=== PATIENT | male | born 1955 | race Caucasian/White ===

== ENCOUNTER 2021-02-15 13:03 | Emergency (ER) | payer MEDICARE, SELFPAY ==
--- NOTE | ~2021-02-15 | XR_ITS ---
EXAMINATION: XR chest 2V 02/15/2021 14:10 INDICATION: Dizziness and headache PROCEDURE: 2 view chest COMPARISON: 09/21/2007 FINDINGS: The lungs are clear. The cardiomediastinal silhouette is within normal limits. There are no pleural effusions. There is no pneumothorax suspected. IMPRESSION: 1: NO ACUTE CARDIOPULMONARY DISEASE. Reviewed, dictated and finalized at location B.
--- NOTE | ~2021-02-15 | CT_ITS ---
EXAMINATION: CT brain wo con DATE: 02/15/2021 14:17 INDICATION: Dizziness with confusion TECHNIQUE: Computed tomography (CT) of the head was performed without intravenous contrast. The dose- length product was 681.00 mGy-cm. COMPARISON: CT dated 05/07/2010 FINDINGS: No acute intracranial hemorrhage, infarction, mass or mass effect. Mild generalized atrophy . There are scattered mild periventricular and subcortical white matter changes, most likely related to small vessel ischemic disease (microangiopathy). No ventriculomegaly or midline shift. There is in tracranial atherosclerosis. Basilar cisterns are patent. No depressed skull fractures. Paranasal sinu ses and mastoids are pneumatized. IMPRESSION: 1. No acute intracranial abnormality. Reviewed, dictated and finalized at location B.
[2021-02-15 13:17] VITALS: BP 179/109; PULSE 91; RESP 19; TEMP 36.8; O2SAT 98
[2021-02-15 13:39] VITALS: BP 186/104; PULSE 88; RESP 20; O2SAT 97
[2021-02-15 13:40] VITALS: BP 186/104; PULSE 92; RESP 25; O2SAT 97
--- NOTE | 2021-02-15 14:00 | ECG_ITS ---
Measurements Intervals [place] Rate: 74 P: 50 RI: 136 QRS: 39 QRSD: 98 T: 106 QT: 352 QTc: 392 Interpretive Statements SINUS RHYTHM NONSPECIFIC T-WAVE ABNORMALITY- ANTEROLAT/HIGH LAT LEADS BASELINE ARTIFACT- V6 BORDERLINE ECG Electronically Signed On 02-15-2021 14:55:18 CDT by Jose Lilly D.O.
[2021-02-15 14:02] VITALS: BP 172/100; PULSE 84; RESP 18; O2SAT 97
[2021-02-15 14:10] LABS: Basophils Absolute Auto 0.1 K/mm3 (0.0-0.1); Basophils Percent Auto 1.3 % (0.2-1.2); Eosinophils Absolute Auto 0.5 K/mm3 (0-0.3); Hematocrit 52.9 % (42.0-52.0); Hemoglobin 17.4 g/dL (14.0-18.0); Immature Granulocyte Absolute 0.03 K/mm3 (0.00-0.031); Immature Granulocyte Percent A 0.4 % (0-0.5); Lymphocytes Absolute Auto 2.38 K/mm3 (0.9-3.2); Lymphocytes Percent Auto 30.5 % (18.3-44.2); Mean Corpuscular HGB Conc 32.9 g/dl (32-36); Mean Corpuscular Hemoglobin 30.6 pg (26-34); Mean Corpuscular Volume 93.1 fl (80-100); Mean Platelet Volume 9.9 fl (7.4-10.4); Monocytes Absolute Auto 0.6 K/mm3 (0.1-0.6); Monocytes Percent Auto 7.6 % (2.6-8.5); Neutrophils Absolute Auto 4.2 K/mm3 (1.3-6.7); Neutrophils Percent Auto 54.2 % (45.5-73.1); Platelet Count Result 169 k/mm3 (150-375); Red Blood Count 5.68 M/mm3 (4.6-6.20); Red Cell Distribution Width 14.6 % (11.5-14.5); White Blood Count 7.8 K/mm3 (4.5-10.0)
[2021-02-15 14:20] LABS: Alanine Aminotransferase 43 U/L (4-50); Albumin Level 4.5 g/dL (3.5-5.1); Alkaline Phosphatase 45 U/L (38-126); Anion Gap 11 mmol/L (8-16); Aspartate Amino Transferase 41 U/L (17-59); Bilirubin,Total 0.6 mg/dL (0.2-1.3); Blood Urea Nitrogen 12 mg/dL (9-20); Calcium 9.7 mg/dL (8.4-10.2); Carbon Dioxide 26 mmol/L (22-30); Chloride 101 mmol/L (98-107); Estimated CRCL calculation 63 ml/min; Estimated Glomerular Filt Rate 51; Glucose 105 mg/dL (75-110); Potassium 3.5 mmol/L (3.4-5.0); Sodium 138 mmol/L (137-145)
[2021-02-15 14:44] LABS: Add Urine Microscopic? NO; Appearance Urine Clear (Clear); Bilirubin Urine Negative (Negative); Blood Urine Negative (Negative); Color Urine Straw (Yellow); Glucose Urine UA Negative (Negative); Ketones Urine Negative (Negative); Leukocyte Esterase Ur Negative LEU/UL (Negative); Nitrate Urine Negative (Negative); Protein Urine Negative (Negative); Specific Grav Ur 1.006 (1.001-1.035); Urobilinogen Urine Negative mg/dL (<2.0)
--- NOTE | 2021-02-15 15:13 | ED.GENADULT ---
HPI - General Adult General Chief complaint: Neuro Symptoms/Deficit Stated complaint: dizzy, Time Seen by Provider: 02/15/21 13:31 Source: patient and RN notes reviewed Mode of arrival: ambulatory Limitations: no limitations History of Present Illness HPI narrative: Patient 65 years old white male presented to the ED with intermittent dizziness for the last 4 weeks. Patient called his family physician 10 days ago who started him on decongestant. Patient reports that dizziness like everything spins when he rolls over in bed, when he gets up from sitting position, when he bends over. Associated sometimes with nausea and sometimes vomiting. Currently patient laying down in bed feeling a little dizzy like wobbly. Patient drove himself to the emergency room. History of hypertension on quinapril 40 mg once a day, hydrochlorothiazide 25 mg once a day. Patient report missing his medication sometimes. But been faithful with his medication over the last 7 days. Patient denies any numbness, tingling or focal neuro deficits. Patient does not smoke or drink or uses drugs. Patient denies any fever, chills, nausea, vomiting, chest pain, or shortness of breath. Complaining of slight headache. And foggy-like feeling Blood pressure on arrival to the emergency room 179/109, currently 172/100. Patient had his blood pressure medication this morning. Related Data Home Medications Medication Instructions Recorded Confirmed aspirin 81 mg tablet,delayed 81 mg PO DAILY 01/04/20 release hydrochlorothiazide 25 mg tablet 25 mg PO DAILY 01/04/20 mecobalamin (vitamin B12) 10,000 See Rx Instructions .ROUTE .COMPLEX 01/04/20 mcg solution for injection quinapril 40 mg tablet 40 mg PO DAILY 01/04/20 testosterone cypionate 600 mg IM ONCE 02/15/21 02/15/21 Allergies Allergy/AdvReac Type Severity Reaction Status Date / Time Iodine and Iodide Containing Allergy Unknown RASH Verified 02/15/21 13:46 Produc ALL FISH Allergy Unknown Anaphylaxis Uncoded 02/15/21 13:46 Review of Systems Review of Systems: Narrative: CONSTITUTIONAL: Denies fever, chills, or sweats. EYES: Denies visual changes, redness, or discharge. ENT: Denies rhinorrhea, congestion, sore throat, or otalgia. CARDIOVASCULAR: Denies chest pain, palpitations, or edema. RESPIRATORY: Denies cough or dyspnea. GASTROINTESTINAL: Denies abdominal pain, nausea, vomiting, or diarrhea. GENITOURINARY: Denies dysuria or hematuria. SKIN: Denies rash or itching. MUSCULOSKELETAL: Denies back pain, joint pain, or myalgia. NEUROLOGIC: Denies headache, numbness, or weakness. PSYCHIATRIC: Denies anxiety or depression. [facility] Past Medical History Medical History Elevated CK-MB level Inflammatory arthritis Social History Social History Gender identity (if verbalized by the patient): Male Exam Narrative: Exam Narrative: General appearance: Well-developed, well-nourished Skin: Normal color Head: Normocephalic, nontraumatic Eyes: Clear conjunctiva ENT: Oropharynx normal, ears normal, nose normal Neck: Supple, nontender Chest and respiratory: Airway patent, no respiratory distress, no accessory muscle use Heart: Regular rate/rhythm Abdomen: Soft, nontender, no organomegaly, quiet bowel sounds Vascular: Normal peripheral pulses, normal capillary refill. Musculoskeletal: Normal range of motion, nontender back Neurologic: Alert and oriented ?3, [employer]ER is normal as tested, no gross motor deficit Course Course Emergency Course: Stable Vital Signs Vital signs: Vital Signs Temperature 36.8 C 02/15/21 13:17 Pulse
[2021-02-15] MEDS: cloNIDine HCL 0.1 MG TABLET PO (15:24)
[2021-02-15 15:31] LABS: Barbiturate Screen Urine Negative (Negative); Benzodiazepines Screen Urine Negative (Negative)
[2021-02-15 16:06] LABS: Troponin I < 0.012 ng/mL (0.000-0.034)
[2021-02-15 16:06] LABS: Amphetamine Screen Urine Negative (Negative); Cannabinoid Screen Urine Negative (Negative); Cocaine Screen Urine Negative (Negative); Methadone Screen Urine Negative (Negative); Opiate Screen Urine Negative (Negative); Phencyclidine Screen Urine Negative (Negative)
[2021-02-15 16:25] VITALS: BP 155/100; PULSE 70; RESP 21; O2SAT 98
[2021-02-15 16:32] LABS: Partial Thromboplastin Time 27.1 SECONDS (22.3-36.8)
== END 2021-02-15 16:42 | disposition home or self-care (01) ==
PROVIDERS: Emergency Provider Emergency Medicine; PCP Internal Medicine
DX: R42 Dizziness and giddiness (principal); I10 Essential (primary) hypertension; T50.905A Adverse effect of unspecified drugs, medicaments and biological substances, initial encounter; Z79.82 Long term (current) use of aspirin
CPT/HCPCS: 36415; 70450; 71046; 80053; 80307; 81003; 84484; 85025; 85610; 85730; 93005; 99284; A9270

== ENCOUNTER 2021-05-06 01:08 | Day surgery (SDC) | payer MEDICARE, SELFPAY ==
[2021-04-24 14:27] VITALS: BMI 34.7
--- NOTE | 2021-05-06 09:55 | WPDANESEPPF ---
Anes - Initial Pre Proc Eval Procedure: Operation Date: 05/06/21 11:00 Proposed Procedures p Screening Colonoscopy - Barrie Delacruz MD Date/Time: 05/06/21 09:55 Surgeon: Barrie Delacruz MD Pre Op Diagnosis: family hx colon ca z85.038 neoplasm z12.11 Patient Data Age: 66 Gender: M Height: 1.83 m Weight: 116.2 kg Allergies Allergy/AdvReac Type Severity Reaction Status Date / Time Iodine and Iodide Containing Allergy Unknown RASH Verified 05/06/21 10:07 Produc ALL FISH Allergy Unknown Anaphylaxis Uncoded 05/06/21 10:07 Home Medications Medication Instructions Recorded Confirmed Type aspirin 81 mg tablet,delayed 81 mg PO DAILY 01/04/20 04/24/21 History release hydrochlorothiazide 25 mg tablet 25 mg PO DAILY 01/04/20 04/24/21 History mecobalamin (vitamin B12) 10,000 See Rx Instructions .ROUTE .COMPLEX 01/04/20 04/24/21 History mcg solution for injection quinapril 40 mg tablet 40 mg PO DAILY 01/04/20 04/24/21 History clonidine HCl 0.1 mg PO ONCE PRN #30 tablet 02/15/21 04/24/21 Rx meclizine 25 mg PO TID PRN #20 tablet 02/15/21 Rx ondansetron HCl [Zofran] 4 mg PO Q6H PRN #10 tablet 02/15/21 Rx testosterone cypionate 600 mg IM ONCE 02/15/21 04/24/21 History Patient hx anesthesia problems: none Family hx anesthesia problems: none PMFSH Past Medical History Medical History Asthma Back pain BPH (benign prostatic hyperplasia) Elevated CK-MB level HTN (hypertension) Hyperlipidemia Inflammatory arthritis Obesity Social History Social History Smoking packs per day: 1.5 Smoking cigarettes per day: 30.0 Smoking status: Former smoker Tobacco type: cigarettes Alcohol intake: current Alcohol use details: RARE Substance use: never Substance use type: does not use Living arrangements: with family Gender identity (if verbalized by the patient): Male Spiritual care concerns: No Anes - Eval Final PreProcedure Day of Procedure 05/06/21 09:55 Patient weight: obese Heart: regular rate and rhythm Lungs: clear to auscultation and normal air movement Airway: Mallampati scale class II Neurological: alert and oriented Last oral intake: >/= 8 hours ASA classification: III Emergent: no Anesthetic plan: proceed Anesthesia type and monitoring: general GIVS Informed Consent: The patient's anesthetic plan and its attendant risks and benefits were discussed with the patient/family/POA. Questions were solicited and answers provided to the satisfaction of the patient/family/POA.
--- NOTE | 2021-05-06 09:57 | PM.HPGS ---
History of Present Illness History of Present Illness Consent: Risks, benefits, and alternatives have been discussed and questions answered. Patient agrees to proceed with procedure. Chief complaint: family hx colon ca z85.038 neoplasm z12.11 Narrative: Andrew Ro is a 66 year old male with a history of polyps. He also has a family history of colon cancer Review of Systems Review of Systems: All systems reviewed & are unremarkable except as noted in HPI and below PMFSH Past Medical History Medical History Asthma Back pain BPH (benign prostatic hyperplasia) Elevated CK-MB level HTN (hypertension) Hyperlipidemia Inflammatory arthritis Obesity Social History Social History Smoking packs per day: 1.5 Smoking cigarettes per day: 30.0 Smoking status: Former smoker Tobacco type: cigarettes Alcohol intake: current Alcohol use details: RARE Substance use: never Substance use type: does not use Living arrangements: with family Gender identity (if verbalized by the patient): Male Spiritual care concerns: No Meds Home Medications and Allergies Home Medications Medication Instructions Recorded Confirmed Type aspirin 81 mg tablet,delayed 81 mg PO DAILY 01/04/20 04/24/21 History release hydrochlorothiazide 25 mg tablet 25 mg PO DAILY 01/04/20 04/24/21 History mecobalamin (vitamin B12) 10,000 See Rx Instructions .ROUTE .COMPLEX 01/04/20 04/24/21 History mcg solution for injection quinapril 40 mg tablet 40 mg PO DAILY 01/04/20 04/24/21 History clonidine HCl 0.1 mg PO ONCE PRN #30 tablet 02/15/21 04/24/21 Rx meclizine 25 mg PO TID PRN #20 tablet 02/15/21 Rx ondansetron HCl [Zofran] 4 mg PO Q6H PRN #10 tablet 02/15/21 Rx testosterone cypionate 600 mg IM ONCE 02/15/21 04/24/21 History Allergies Allergy/AdvReac Type Severity Reaction Status Date / Time Iodine and Iodide Containing Allergy Unknown RASH Verified 04/24/21 14:23 Produc ALL FISH Allergy Unknown Anaphylaxis Uncoded 04/24/21 14:23 Exam Resp: Auscultation: clear to auscultation bilaterally Cardio: Rate: regular rate Rhythm: regular rhythm GI: GI Palp: Yes Soft to palpation and No Tenderness to palpation present (GI) Assessment and Plan Assessment and plan (1) Colon cancer screening: Code(s): Z12.11 - Encounter for screening for malignant neoplasm of colon Status: Acute Assessment and Plan: Colonoscopy with possible biopsy or polypectomy or cautery or injection of substances.
[2021-05-06 10:09] VITALS: BP 158/97; PULSE 85; RESP 18; TEMP 36.7; O2SAT 96; BMI 34.4
[2021-05-06] MEDS: LACTATED RINGERS 1,000 ML 150 ML IV CONT (10:15)
[2021-05-06] MEDS: SIMETHICONE ORAL SUSPENSION 20 MG/0.3 ML 30 ML BOTTLE 0.6 ML IRRIGATION (11:02)
[2021-05-06 11:11] VITALS: BP 97/47; PULSE 79; RESP 15; O2SAT 96
[2021-05-06 11:21] VITALS: BP 100/53; PULSE 77; RESP 16; O2SAT 95
[2021-05-06 11:31] VITALS: BP 132/55; PULSE 74; RESP 20; O2SAT 98
== END 2021-05-06 11:51 | disposition home or self-care (01) ==
PROVIDERS: PCP Internal Medicine; Visit Provider Internal Medicine Gastroenterology
PROC: 0DJD8ZZ Inspection of Lower Intestinal Tract, Via Natural or Artificial Opening Endoscopic (ICD-10-PCS; CPT 45378; principal; 2021-05-06 11:00)
DX: Z12.11 Encounter for screening for malignant neoplasm of colon (principal); K57.30 Diverticulosis of large intestine without perforation or abscess without bleeding; Z80.0 Family history of malignant neoplasm of digestive organs; J45.909 Unspecified asthma, uncomplicated; N40.0 Benign prostatic hyperplasia without lower urinary tract symptoms; I10 Essential (primary) hypertension; E78.5 Hyperlipidemia, unspecified; Z87.891 Personal history of nicotine dependence; Z79.82 Long term (current) use of aspirin; E66.9 Obesity, unspecified; Z68.34 Body mass index [BMI] 34.0-34.9, adult
CPT/HCPCS: G0105; J2704; J7120

== ENCOUNTER 2022-01-30 10:37 | Outpatient (CLI) | payer MEDICARE, SELFPAY ==
--- NOTE | ~2022-01-30 | US_ITS ---
US renal BI 01/30/2022 11:49 Procedure: Realtime transabdominal ultrasound of the kidneys and bladder. Indication: Abnormal creatinine. Comparison: No prior studies for comparison. Findings: Renal echotexture is normal on the right. There are multiple left renal cysts, largest leo uring 9 cm. No hydronephrosis or solid masses. The right kidney measures 11.6 cm and left kidney leo ures 17.6 cm. Bladder within normal limits. Impression: 1: Multiple left renal cysts measuring up to 9 cm. Reviewed, dictated and finalized at location B. Impression: 1: Multiple left renal cysts measuring up to 9 cm.
--- NOTE | ~2022-01-30 | US_ITS ---
EXAMINATION: US carotid duplex BI DATE: 01/30/2022 11:49 INDICATION: TIA. TECHNIQUE: Grayscale, color Doppler, and pulsed Doppler images of the cervical carotid arteries were obtained. The degree of vessel stenosis is placed in one of the following categories: normal, <50%, 5 0-69%, >=70% but less than near-occlusion, near-occlusion, or total occlusion. Note that percent sten osis relative to normal distal artery lumen diameter is indirectly measured from velocity measurement s as described by Nii, et al. Radiology 2003; 229:340-346. Notes: Normal: Peak systolic velocity <125 centimeters/sec and no plaque <50%. Peak systolic velocity <125 ( EDV <40; ICA/CCA PSV ratio <2.0; used these factors only a tandem lesions or low cardiac output or co ntralateral disease) 50-69 %: PSV 125-230 (EDV 40-100; ratio 2-4) >= 70% but less than near occlusion: PSV greater than 230 (EDV > 100; ratio> 4.0) Near Occlusion: PSV that is variable; markedly narrowed lumen Occlusion: Absent flow on color/spectral Doppler and no lumen on dickerson scale. COMPARISON: Ultrasound dated 08/09/2013. FINDINGS: RIGHT: The right common carotid artery (CCA) peak systolic velocity (PSV) is 87 cm/s. The right internal car otid artery (ICA) PSV is 100 cm/s. The right ICA end-diastolic velocity (EDV) is 26 cm/s. The right I CA/CCA PSV ratio is 1.1. The external carotid artery (ECA) PSV is 159 cm/s. There is antegrade flow i n the right vertebral artery. LEFT: The left CCA PSV is 83 cm/s. The left ICA PSV is 104 cm/s. The left ICA EDV is 31 cm/s. The left ICA/ CCA PSV ratio is 1.3. The ECA PSV is 129 cm/s. There is antegrade flow in the left vertebral artery. IMPRESSION: 1. Less than 50% stenosis in the right internal carotid artery by sonographic criteria. 2. Less than 50% stenosis in the left internal carotid artery by sonographic criteria. Reviewed, dictated and finalized at location B. IMPRESSION: 1. Less than 50% stenosis in the right internal carotid artery by sonographic c riteria. 2. Less than 50% stenosis in the left internal carotid artery by sonographic cr benedictia.
== END 2022-01-30 10:38 | disposition home or self-care (01) ==
PROVIDERS: PCP Internal Medicine; Visit Provider Internal Medicine
DX: R79.89 Other specified abnormal findings of blood chemistry (principal); N28.1 Cyst of kidney, acquired; I65.23 Occlusion and stenosis of bilateral carotid arteries
CPT/HCPCS: 76775; 93880

== ENCOUNTER 2023-07-14 07:45 | Outpatient (CLI) | payer MEDICARE, SELFPAY ==
--- NOTE | 2023-07-14 08:50 | ECG_ITS ---
Measurements Intervals [place] Rate: 81 P: 46 [place]: 129 QRS: 1 QRSD: 102 T: 83 QT: 371 QTc: 433 Interpretive Statements SINUS RHYTHM CONSIDER INFERIOR INFARCT, AGE INDETERMINATE BORDERLINE ST-T WAVE ABNORMALITY- HIGH LATERAL LEADS ABNORMAL ECG COMPARED TO ECG 02/15/2021 14:39:34 NO SIGNIFICANT CHANGES Electronically Signed On 07-14-2023 9:07:15 IMPLEMENTATION ADVISOR by Jose Lilly D.O.
[2023-07-14 09:22] LABS: Urine Cotinine NEGATIVE
[2023-07-14 09:23] LABS: Anion Gap 11 mmol/L (8-16); Blood Urea Nitrogen 22 mg/dL (9-20); Calcium 10.1 mg/dL (8.4-10.2); Carbon Dioxide 29 mmol/L (22-30); Chloride 100 mmol/L (98-107); Estimated Glomerular Filt Rate 43; Glucose 120 mg/dL (65-110); Potassium 3.9 mmol/L (3.4-5.0); Sodium 140 mmol/L (137-145)
[2023-07-14 09:24] LABS: Hemoglobin A1C 5.4 % (<5.7)
[2023-07-14 09:25] LABS: Prothrombin Time 13.1 Seconds (11.1-14.7)
[2023-07-14 09:26] LABS: Partial Thromboplastin Time 31.3 SECONDS (22.3-36.8)
== END 2023-07-14 07:46 | disposition home or self-care (01) ==
LOC: ANHSURGERY 07:56
PROVIDERS: Anesthesiology; PCP Internal Medicine; Visit Provider Orthopaedic Surgery
DX: M17.12 Unilateral primary osteoarthritis, left knee (principal); N18.32 Chronic kidney disease, stage 3b; Z01.818 Encounter for other preprocedural examination; R94.31 Abnormal electrocardiogram [ECG] [EKG]
CPT/HCPCS: 36415; 80048; 80307; 83036; 85610; 85730; 87081; 93005

== ENCOUNTER 2023-08-03 02:45 | Day surgery (SDC) | payer MEDICARE, SELFPAY ==
--- NOTE | 2023-07-14 07:52 | PC.NURSE ---
PRE-- Report to the Outpatient Waiting Room, entrance under the green pavilion located off [facility], at time _0600_ on date _08/03/23_. Planned Procedure Time: _0730_. PACK A SMALL OVERNIGHT BAG AND LEAVE IN THE CAR ALONG WITH YOUR WALKER Time changes happen often and if your time is changed the preop area will call you the afternoon before. - You and your visitor will be asked to self-screen and do not enter if you have any COVID symptoms. - A mask is optional within the hospital at this time. -VISITING HOURS 8AM-8PM Patients may have clear liquids (water, carbonated beverages, clear teas, apple juice) until 3 hours prior to surgery (0430 AM) with a maximum of 20 ounces. - No food from midnight until time of surgery Take the following medications with a SIP of water the morning of surgery: _NONE_ DO NOT STOP ANY OF YOUR OTHER PRESCRIPTION MEDICATIONS PRIOR TO SURGERY ?EXCEPT THE FOLLOWING Medications to discontinue per DR. TAYLOR - _ASPIRIN 7 DAYS PRIOR TO SURGERY, Date to take last dose 07/26/23_ Please no make-up, nail kazakh, hairspray, perfume, deodorant, or body powder the day of surgery. No jewelry (including any body piercings) or valuables the day of surgery, leave them at home. Please take a shower or bath the night before, or the morning of, surgery with an antibacterial soap. Wear comfortable, loose fitting clothing. - Jewelry must be removed prior to entering the operating room. Rings and piercings that are not removed may be cut off. - The hospital will not accept responsibility for valuables. - Please leave all valuables, including medications, at home the day of surgery. If you are going home after surgery, a licensed route sales delivery drivers supervisor must drive you home. - NO public transportation without another adult if you receive anesthesia. - We recommend that an adult stay with you for 24 hours following discharge. - We also recommend that you do not drive, make important decision, drink alcoholic beverages, or take any drugs that were not prescribed by your health care provider for at least 24 hours after your discharge time. Follow any additional instructions given to you from your surgeon. If you or anyone in your household have experienced Covid symptoms in the past week, please notify your surgeon or the nurse liaison at the phone number below for possible testing. Instructions given to _PATIENT_and asked if any additional questions and then verbalized understanding. Patient advised to call surgeon office or pre surgery nurse liaison [phone] if any additional questions.
--- NOTE | 2023-07-14 07:55 | PC.NURSE ---
PRE-OP INSTRUCTIONS, PLEASE READ CAREFULLY Report to the Outpatient Waiting Room, entrance under the green pavilion located off [facility], at time _0600_ on date _08/03/23_. Planned Procedure Time: _0730_. PACK A SMALL OVERNIGHT BAG AND LEAVE IN THE CAR ALONG WITH YOUR WALKER Time changes happen often and if your time is changed the preop area will call you the afternoon before. - You and your visitor will be asked to self-screen and do not enter if you have any COVID symptoms. - A mask is optional within the hospital at this time. -VISING HOURS 8AM-8PM Patients may have clear liquids (water, carbonated beverages, clear teas, apple juice) until 3 hours prior to surgery (0430 AM) with a maximum of 20 ounces. - No food from midnight until time of surgery Take the following medications with a SIP of water the morning of surgery: _TYLENOL, & INHALER IF NEEDED_ DO NOT STOP ANY OF YOUR OTHER PRESCRIPTION MEDICATIONS PRIOR TO SURGERY ?EXCEPT THE FOLLOWING Medications- __PT STATES TO CONTINUE ASPIRIN PER DR. TAYLOR_ Medications to discontinue per ANESTHESIA - _PREVAGEN 3 DAYS PRIOR TO SURGERY, date to take last dose 07/30/23_ Please no make-up, nail norwegian, hairspray, perfume, deodorant, or body powder the day of surgery. No jewelry (including any body piercings) or valuables the day of surgery, leave them at home. Please take a shower or bath the night before, or the morning of, surgery with an antibacterial soap. Wear comfortable, loose fitting clothing. - Jewelry must be removed prior to entering the operating room. Rings and piercings that are not removed may be cut off. - The hospital will not accept responsibility for valuables. - Please leave all valuables, including medications, at home the day of surgery. If you are going home after surgery, a licensed company tanker truck driver must drive you home. - NO public transportation without another adult if you receive anesthesia. - We recommend that an adult stay with you for 24 hours following discharge. - We also recommend that you do not drive, make important decision, drink alcoholic beverages, or take any drugs that were not prescribed by your health care provider for at least 24 hours after your discharge time. Follow any additional instructions given to you from your surgeon. If you or anyone in your household have experienced Covid symptoms in the past week, please notify your surgeon or the nurse liaison at the phone number below for possible testing. Instructions given to _PATIENT_and asked if any additional questions and then verbalized understanding. Patient advised to call surgeon office or pre surgery nurse liaison [phone] if any additional questions.
[2023-07-14 08:18] VITALS: BP 140/74; PULSE 90; RESP 20; TEMP 36.9; O2SAT 98; BMI 34.6
--- NOTE | 2023-07-31 07:47 | PM.IMHP ---
H&P: HPI History of Present Illness Date/Time: 07/31/23 07:47 Chief Complaint: Left knee DJD Narrative: 68-year-old male patient of Dr. Merrill who presents today for a left total knee arthroplasty. Patient is having pain in his knee for the better part of a year. He had a cortisone injection in November of this year which gave him only about 24 hours of improvement. Patient does have chronic kidney disease and is not a good candidate for anti-inflammatories. He has moderately severe medial compartment osteoarthritis in the knee and feels at this point he is ready to proceed with total knee arthroplasty. Review of Systems Review of Systems: All systems reviewed & are unremarkable except as noted in HPI and below PMFSH Past Medical History Medical History Asthma Back pain BPH (benign prostatic hyperplasia) Elevated CK-MB level HTN (hypertension) Hyperlipidemia Inflammatory arthritis Obesity Social History Social History (Updated 06/22/23 @ 09:15 by Leticia Salazar MA) Smoking packs per day: 1.5 Smoking cigarettes per day: 30.0 Years smoked: 3 Smoking pack-years: 4.50 Smoking status: Former smoker Tobacco type: cigarettes Second hand tobacco smoke exposure: No Smoking end date: 01/22/75 Additional smoking assessment comments: PT DENIES ALL FORMS OF TOBACCO USE Alcohol intake: current Alcohol use details: RARELY - ONCE A YEAR WHILE ON VACATION Substance use: never Substance use type: does not use Lack of Transportation: No Lack of Food: Never True Current Housing: I Have Housing Concerned About Future Housing: No Difficulty Paying Gas/Electric Bills: No Difficulty Paying for Meds: No Currently Unemployed: No Education: Bachelor's Degree Difficulty w/ Childcare or Family Care: No Living arrangements: with family Occupation/Education: occupation Gender identity (if verbalized by the patient): Male Sexual Orientation (if Verbalized by the Patient): Straight or Heterosexual Spiritual care concerns: No Meds Home Medications and Allergies Home Medications Medication Instructions Recorded Confirmed Type aspirin 81 mg tablet,delayed 81 mg PO DAILY 01/04/20 07/14/23 History release (Adult Low Dose Aspirin) hydrochlorothiazide 25 mg tablet 25 mg PO DAILY 01/04/20 07/14/23 History mecobalamin (vitamin B12) 10,000 See Rx Instructions .Route .COMPLEX 01/04/20 07/14/23 History mcg solution for injection quinapril 40 mg tablet 40 mg PO DAILY 01/04/20 07/14/23 History testosterone cypionate 200 mg/mL 600 mg IM ONCE every 30 days 02/15/21 07/14/23 History intramuscular kit sildenafil 50 mg tablet 60 mg PO DAILY PRN Erectile 06/22/23 07/14/23 History Dysfunction Prevagen 1 tab-cap DAILY 07/14/23 07/14/23 History acetaminophen 500 mg tablet 500 mg PO QID PRN Pain 07/14/23 07/14/23 History albuterol sulfate 90 mcg/actuation 1 puff inhalation QID PRN Wheezing 07/14/23 07/14/23 History aerosol inhaler atorvastatin 20 mg tablet (Lipitor) 20 mg PO DAILY 07/14/23 07/14/23 History finasteride 5 mg tablet 5 mg PO DAILY 07/14/23 07/14/23 History Allergies Allergy/AdvReac Type Severity Reaction Status Date / Time Iodine and Iodide Containing Allergy Unknown RASH Verified 07/14/23 08:07 Produc ALL FISH Allergy Unknown Anaphylaxis Uncoded 07/14/23 08:07 Exam Narrative: 68-year-old male alert pleasant. He is 5 ft 10 and 267 lb his BMI is 38. His left knee range of motion is from 12-130 degrees. He has a fixed varus deformity. Hip range of motion is full without discomfort. Negative Stinchfield maneuver. He has a mild effusion in the knee. Mild to moderate tenderness to palpation the medial joint line. No edema in lower extremity. He reports slight numbness to light touch testing over the dorsum of the left foot and toes. He has normal strength in all muscle groups left lower extremity. 2
[2023-08-03] VITALS (15 sets, daily range): BP systolic 96–154; BP diastolic 45–84; PULSE 77–101; RESP 12–20; TEMP 36.1–36.9; O2SAT 94–100
--- NOTE | ~2023-08-03 | XR_ITS ---
EXAMINATION: [id number] DATE: 08/03/2023 11:46 INDICATION: Total left knee arthroplasty. Postop. TECHNIQUE: 2 views of left knee were obtained. COMPARISON: None. FINDINGS: There is a total left knee arthroplasty with patellar resurfacing in near-anatomic alignmen t. No fracture. There is gas in the knee joint and soft tissues, consistent with recent surgery. IMPRESSION: 1. Total left knee arthroplasty in near-anatomic alignment. Reviewed, dictated and finalized at location A. R
[2023-08-03] MEDS: LACTATED RINGERS 1,000 ML 30 ML IV CONT (06:30)
[2023-08-03] MEDS: ACETAMINOPHEN 500 MG TABLET 1000 MG PO ×3 (06:55→23:17)
[2023-08-03] MEDS: VANCOMYCIN 1,750 MG/NS 500 ML BAG 250 MG IVPB (06:55)
[2023-08-03] MEDS: TRANEXAMIC ACID 1,000MG/ISO100 1,000 MG/100 ML BAG 200 MG IVPB (06:55)
--- NOTE | 2023-08-03 07:03 | WPDANESEPPF ---
Anes - Initial Pre Proc Eval Procedure: Operation Date: 08/03/23 07:30 Proposed Procedures p Left Total Knee Arthroplasty - Wild Patterson MD Date/Time: 08/03/23 07:03 Surgeon: Wild Patterson MD Pre Op Diagnosis: left knee oa Patient Data Age: 68 Gender: M Height: 1.83 m Weight: 115.8 kg Last Vital Signs Temp 36.9 C 07/14/23 08:18 Pulse 90 07/14/23 08:18 Resp 20 07/14/23 08:18 BP 140/74 07/14/23 08:18 Pulse Ox 98 07/14/23 08:18 O2 Del Method Room Air 07/14/23 08:18 Allergies Allergy/AdvReac Type Severity Reaction Status Date / Time Iodine and Iodide Containing Allergy Unknown RASH Verified 07/14/23 08:07 Produc ALL FISH Allergy Unknown Anaphylaxis Uncoded 07/14/23 08:07 Home Medications Medication Instructions Recorded Confirmed Type aspirin 81 mg tablet,delayed 81 mg PO DAILY 01/04/20 07/14/23 History release (Adult Low Dose Aspirin) hydrochlorothiazide 25 mg tablet 25 mg PO DAILY 01/04/20 07/14/23 History mecobalamin (vitamin B12) 10,000 See Rx Instructions .Route .COMPLEX 01/04/20 07/14/23 History mcg solution for injection quinapril 40 mg tablet 40 mg PO DAILY 01/04/20 07/14/23 History testosterone cypionate 200 mg/mL 600 mg IM ONCE every 30 days 02/15/21 07/14/23 History intramuscular kit sildenafil 50 mg tablet 60 mg PO DAILY PRN Erectile 06/22/23 07/14/23 History Dysfunction Prevagen 1 tab-cap DAILY 07/14/23 07/14/23 History acetaminophen 500 mg tablet 500 mg PO QID PRN Pain 07/14/23 07/14/23 History albuterol sulfate 90 mcg/actuation 1 puff inhalation QID PRN Wheezing 07/14/23 07/14/23 History aerosol inhaler atorvastatin 20 mg tablet (Lipitor) 20 mg PO DAILY 07/14/23 07/14/23 History finasteride 5 mg tablet 5 mg PO DAILY 07/14/23 07/14/23 History Patient hx anesthesia problems: other (aggressive emergence) Family hx anesthesia problems: none Results Review: All pre-operative results and documents have been reviewed as part of the pre-operative evaluation. [facility] Past Medical History Medical History Asthma Back pain BPH (benign prostatic hyperplasia) Elevated CK-MB level HTN (hypertension) Hyperlipidemia Inflammatory arthritis Obesity Social History Social History Smoking packs per day: 1.5 Smoking cigarettes per day: 30.0 Years smoked: 3 Smoking pack-years: 4.50 Smoking status: Former smoker Tobacco type: cigarettes Second hand tobacco smoke exposure: No Smoking end date: 01/22/75 Additional smoking assessment comments: PT DENIES ALL FORMS OF TOBACCO USE Alcohol intake: current Alcohol use details: RARELY - ONCE A YEAR WHILE ON VACATION Substance use: never Substance use type: does not use Lack of Transportation: No Lack of Food: Never True Current Housing: I Have Housing Concerned About Future Housing: No Difficulty Paying Gas/Electric Bills: No Difficulty Paying for Meds: No Currently Unemployed: No Education: Bachelor's Degree Difficulty w/ Childcare or Family Care: No Living arrangements: with family Occupation/Education: occupation Gender identity (if verbalized by the patient): Male Sexual Orientation (if Verbalized by the Patient): Straight or Heterosexual Spiritual care concerns: No Anes - Eval Final PreProcedure Day of Procedure 08/03/23 07:03 Patient weight: obese Heart: regular rate and rhythm Lungs: clear to auscultation Airway: Mallampati scale class II Neurological: alert and oriented Last oral intake: >/= 8 hours ASA classification: III Emergent: no Anesthetic plan: proceed Anesthesia type and monitoring: general ETT and standard monitoring Results Review: All pre-operative results and documents have been reviewed as part of the pre-operative evaluation. Informed Consent: The patient's anesthetic plan and its attendant risks and
--- NOTE | 2023-08-03 07:22 | WPDHPUPDATE1 ---
History and Physical Update Update Date/Time: 08/03/23 07:22 History and Physical has been reviewed, including an updated exam of the patient. There are NO changes in the patient's condition. Risks, benefits, and alternatives have been discussed and questions answered. Patient agrees to proceed with procedure.
[2023-08-03] MEDS: ceFAZolin 2 GM/D5W 50 ML 2 GM/50 ML BAG IVPB (07:36)
[2023-08-03] MEDS: ceFAZolin SODIUM 1 GM VIAL 3 GM (08:25)
[2023-08-03] MEDS: GENTAMICIN BONE CEMENT REFOBACIN 1 EACH TOPICAL (08:26)
[2023-08-03] MEDS: ceFAZolin SODIUM 1 GM VIAL 2 GM IV PUSH (10:40)
[2023-08-03] MEDS: TRANEXAMIC ACID 1,000 MG/10 ML AMPUL 1000 MG IV PUSH (10:41)
--- NOTE | 2023-08-03 11:45 | W.PM.PROC2 ---
Procedure Note - Detailed Date of Procedure 08/03/23 Pre-op Diagnosis left knee oa Post-op Diagnosis Same Procedure Performed Left total knee arthroplasty Surgeon Wild Patterson MD General Merchandise Manager Yasmeen Anesthesia General Description of Procedure Patient was brought to the operating room and general anesthesia was administered. He received 2 g of Ancef weight based vancomycin 1 g of tranexamic acid preoperatively. The left knee was prepped with ChloraPrep and covered with the clear adhesive drape. History of rash with topical iodine. The limb was exsanguinated tourniquet elevated to 300 mmHg. Under anesthesia he had significant lateral subluxation of the patella in deep flexion. 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 An 8 in longitudinal midline incision was used in the standard parapatellar arthrotomy medialized. Infrapatellar and suprapatellar fat pads were excised a quadriceps synovectomy carried out. He had moderate degenerative change of the patella was central wear. The patella measured 24 mm in thickness and was cut to 16 mm. Bone quality was excellent. Protector cap applied. A guide magi was inserted the femoral canal after aspiration of canal contents using the 5 degree valgus cutting bushing 9 mm of bone removed the distal femur. Next the tibial was cut. We tried to make a skim cut off the low point of the medial tibial plateau. Our initial cut was just a little bit superficial and additional 2.5 mm of bone was then removed which gave appropriate cut surface and I estimated this at about 1 degree of varus alignment appropriate slope. Meniscal remnants were excised the PCL was recessed. Flexion gap at 90? measured 8 mm medially and 11 mm laterally. Femoral sizing guide was applied set at 4? of external rotation which matched Whitesides line. Posterior referencing pinholes were placed. The size vanguard 70 cutting block was applied in AP and chamfer cuts were made. The femur fit nicely line to line medial to lateral and resting on the anterior cortex proximally. Flexion gap was assessed. The knee except 10 mm CR trial at 90? with a little bit of play medially and laterally which seemed fairly symmetric. The tibia was sized to a 75. This fit line to line posterolateral to anteromedial at proper rotation this was punched. We trialed with the 10 insert and I felt the knee was just a little bit too tight laterally 90?. Also we lacked extension. To balance the flexion gap I elected to cut 1 mm of bone from the lateral tibial plateau to give a 0 degree alignment and we confirmed flat tibial surface and 3 punched for the keel. Additional 2 mm of bone removed the distal femur. With the trial femur in place we removed excess posterior femoral condylar bone proximally. He did have a 10 degree flexion contracture under anesthesia so the central capsular release was performed from the posterior femur but short of complete central release. On retrialing we now had excellent soft tissue balance at 90? of flexion 1 mm of lateral opening 2 mm of medial opening medial opening closed down with towel clip in the arthrotomy. In extension we had 3 mm of lateral opening and no play medially and had a barely positive bounce. We carefully exposed the posteromedial tibial osteophyte and this was trimmed back conservatively and on repeat trialing now the knee came out to full extension with negative bounce and a mm of medial opening to valgus stress in extension. The patella was sized to a 34 x 7.8 and lug holes were drilled for this and composite patellar thickness was 25 mm. He had a lot of thickened synovial tissue in the lateral gutter tissue and patellar tracking was not perfect. The tourniquet had been put down at 90? so this was a true past and we debrided the hypertrophic synovium in the lateral gutter and a minimal lateral facetectomy was performed and on re- trialing we did have central patellar tracking without the need for later
--- NOTE | 2023-08-03 11:53 | PM.OP ---
Procedure Note - Brief Procedure Note - Brief Date of procedure: 08/03/23 left knee oa Procedure performed: Left total knee arthroplasty Surgeon: GIGI Lucas Findings: 68-year-old male who underwent left total knee arthroplasty on 08/03. I was involved in the procedure including positioning the patient on the OR table and 1st assisting through the time surgery. Total time spent was 3-1/2 hours
[2023-08-03] MEDS: fentaNYL CITRATE INJ (*CRX) 100 MCG/2 ML VIAL 25 MCG IV PUSH ×4 (12:25→13:02)
[2023-08-03] MEDS: oxyCODONE HCL (*CRX) 5 MG TAB IR PO ×3 (14:25→20:15)
--- NOTE | 2023-08-03 15:27 | ADMGEN ---
This patient, Andrew Ro, was admitted to Medical Room 250-01. Patient/family oriented to hospital policies and general routines including ID bracelet, bed and alarms, visiting hours, pain management, procedures, bathroom and other care routines, personal items, smoking policy, room service/diet, and visiting hours. Information on how to activate the Rapid Response Team has been discussed. Patient/Family are encouraged to report perceived risks to care and to ask questions if they do not understand what they are told or what they should do.
[2023-08-03] MEDS: SENNA/DOCUSATE SODIUM TABLET 2 TAB PO (17:40)
[2023-08-03] MEDS: ceFAZolin 1 GM/NS 50 ML 1 GM/50 ML BAG IVPB (17:44)
[2023-08-03] MEDS: VANCOMYCIN 1,000 MG/NS 250 ML 1,000 MG/250 ML BAG 250 MG IVPB (18:30)
--- NOTE | 2023-08-03 19:00 | WPDCN ---
Assessment and Plan Assessment and plan (1) Arthritis of left knee: Code(s): M17.12 - Unilateral primary osteoarthritis, left knee Status: Acute Assessment and Plan: Postoperative day 0 status post left total knee arthroplasty. Wound care, pain control, and DVT prophylaxis deferred to Dr. Patterson. Agree with PT/OT. Check baseline labs in a.m. (2) Hypertension: Code(s): I10 - Essential (primary) hypertension Status: Acute Assessment and Plan: Blood pressures were reviewed and they have been running a bit high this evening, likely due to pain. Continue antihypertensives and monitor blood pressures closely. (3) Chronic kidney disease, stage 3b: Code(s): N18.32 - Chronic kidney disease, stage 3b Status: Acute Assessment and Plan: Check BMP in a.m. (4) Benign prostatic hyperplasia: Code(s): N40.0 - Benign prostatic hyperplasia without lower urinary tract symptoms Status: Acute Assessment and Plan: Continue finasteride; p.r.n. bladder scan. (5) Hyperlipidemia: Code(s): E78.5 - Hyperlipidemia, unspecified Status: Acute Assessment and Plan: Continue atorvastatin check LFTs in a.m. Plan Thank you for allowing us to participate in this patient's care. Please do not hesitate to contact us with any questions. HPI Data of Consult Date/Time: 08/03/23 20:00 Requesting Physician: Wild Patterson MD Consult Narrative Reason for consult: Medical management. Narrative: This is a 68-year-old male with osteoarthritis, hypertension, dyslipidemia, benign prostatic hyperplasia, and chronic kidney disease stage III whom the hospitalist service has been consulted for help managing his medical conditions postoperatively. He report longstanding pain in his left knee which has not been amenable to conservative outpatient treatment and he elected for replacement today. Surgery was performed under general anesthesia with no immediate complications documented and an estimated blood loss of 250 mL. Postoperatively he has noticed quite a bit of swelling around the left knee and he describes a deep, aching pain in the which he currently rates 8/10. He denies paresthesias, skin color, and temperature changes distal to the surgical site. He also denies fever, chills, sweats, chest pain, shortness a breath, nausea, and vomiting. On discharge he will be going home and will be helping out as needed. Review of Systems Review of Systems: Twelve systems were reviewed. He believes his hypertension and hyperlipidemia are well controlled on home medications. He denies personal and family history of venous thromboembolism. He was previously referred to a western philosophy professor for an elevated red blood cell count at which time he had therapeutic phlebotomy thus he has presumed polycythemia. Patient notes an enlarged prostate and reports he has nocturia, at least 1 time per night if not more. Except as documented, all other systems were reviewed and are negative. [facility] Past Medical History Medical History (Updated 08/03/23 @ 20:55 by Nataliya Gautam PA-C) Asthma Benign prostatic hyperplasia Chronic kidney disease, stage 3b Hyperlipidemia Hypertension Inflammatory arthritis Obesity Surgical History Surgical History (Updated 08/03/23 @ 20:53 by Nataliya Gautam PA-C) History of arthroscopy of left knee History of colonoscopy History of hemorrhoidectomy History of left knee replacement (08/03/23) History of lumbar fusion History of nasal septoplasty History of right hip replacement History of tonsillectomy Family History Family History (Updated 08/03/23 @ 20:53 by Nataliya Gautam PA-C) Other Family history non-contributory Social History Social History (Updated 08/03/23 @ 20:53 by Nataliya Gautam PA-C) Social History: Surrogate medical decision maker: Janelle Ro, spouse. Code status: Full code. Smoking pack
[2023-08-03] MEDS: MORPHINE SULFATE (*CRX) 2 MG/ML INJ IV PUSH (20:15)
[2023-08-03] MEDS: FAMOTIDINE 20 MG TABLET PO (20:15)
[2023-08-04] MEDS: oxyCODONE HCL (*CRX) 5 MG TAB IR PO ×4 (00:09→05:53)
[2023-08-04 00:10] VITALS: BP 151/84; PULSE 103; RESP 19; TEMP 36.7; O2SAT 97
[2023-08-04] MEDS: ceFAZolin 1 GM/NS 50 ML 1 GM/50 ML BAG IVPB ×2 (01:26→10:22)
[2023-08-04 04:27] VITALS: BP 145/73; PULSE 96; RESP 18; TEMP 36.5; O2SAT 97
[2023-08-04] MEDS: ACETAMINOPHEN 500 MG TABLET 1000 MG PO (05:52)
[2023-08-04] MEDS: VANCOMYCIN 1,000 MG/NS 250 ML 1,000 MG/250 ML BAG 125 MG IVPB (05:59)
[2023-08-04 06:28] LABS: Basophils Absolute Auto 0.1 K/mm3 (0.0-0.1); Basophils Percent Auto 0.5 % (0.2-1.2); Eosinophils Percent Auto 0.1 % (0-4.4); Hematocrit 39.7 % (42.0-52.0); Hemoglobin 12.8 g/dL (14.0-18.0); Immature Granulocyte Absolute 0.06 K/mm3 (0.00-0.031); Immature Granulocyte Percent A 0.5 % (0-0.5); Lymphocytes Absolute Auto 2.18 K/mm3 (0.9-3.2); Mean Corpuscular HGB Conc 32.2 g/dl (32-36); Mean Corpuscular Hemoglobin 30.1 pg (26-34); Mean Corpuscular Volume 93.4 fl (80-100); Mean Platelet Volume 10.8 fl (7.4-10.4); Monocytes Absolute Auto 1.2 K/mm3 (0.1-0.6); Monocytes Percent Auto 9.5 % (2.6-8.5); Neutrophils Absolute Auto 8.7 K/mm3 (1.3-6.7); Neutrophils Percent Auto 71.4 % (45.5-73.1); Platelet Count Result 164 k/mm3 (150-375); Red Blood Count 4.25 M/mm3 (4.6-6.20); Red Cell Distribution Width 13.8 % (11.5-14.5); White Blood Count 12.1 K/mm3 (4.5-10.0)
--- NOTE | 2023-08-04 06:42 | PM.PNORT ---
Progress Note: A&P Assessment and Plan (1) Arthritis of left knee: Code(s): M17.12 - Unilateral primary osteoarthritis, left knee Status: Acute Assessment and Plan: Patient had a terrible afternoon yesterday. He was having severe pain throughout the afternoon and only receiving 5 mg oxycodone 4 hours scheduled. He was not given the 5 mg p.r.n. oxycodone every 4 hours as ordered for severe pain. The evening shift nurse called me about is pain control issues and I advised her to utilize the p.r.n. oxycodone that was ordered and he has done much better overnight. Unfortunately this gentleman cannot use Toradol or Celebrex likely would usually use because of his chronic renal failure. His GFR before surgery we was only 43 and the risk would be too high of exacerbating his renal failure with use of nonsteroidal anti-inflammatory medications. He has no blood on the dressing he has mild swelling in the knee he is neurologically intact he is able do a straight leg raise. He is alert and oriented. His hemoglobin is adequate at 12.4. The CMP is pending. We will give him another dose of Decadron this morning which will help with pain control without affecting his renal function. We will discharge him later today if he is doing well. Subjective Subjective Date/Time Seen: 08/04/23 06:42 Objective Data Vital Signs Vital Signs: Vital Signs - 24 hr 08/03/23 06:55 08/03/23 11:46 08/03/23 12:00 Temperature 36.1 C L 36.1 C L Pulse Rate 77 87 87 Respiratory Rate 14 14 13 Blood Pressure 151/74 H 96/49 L 110/54 L Pulse Oximetry 98 99 100 Oxygen Delivery Room Air Simple Face Mask Simple Face Mask Oxygen Flow Rate 10 10 08/03/23 12:15 08/03/23 12:30 08/03/23 12:45 Temperature Pulse Rate 87 89 90 Respiratory Rate 15 12 12 Blood Pressure 113/60 112/45 L 117/63 Pulse Oximetry 97 97 94 Oxygen Delivery Room Air Room Air Room Air Oxygen Flow Rate 08/03/23 13:00 08/03/23 14:00 08/03/23 14:50 Temperature Pulse Rate 93 Respiratory Rate 20 Blood Pressure 142/77 H Pulse Oximetry 96 Oxygen Delivery Room Air Room Air Room Air Oxygen Flow Rate 08/03/23 13:14 08/03/23 13:29 08/03/23 13:59 Temperature 36.4 C 36.4 C 36.4 C Pulse Rate 92 90 89 Respiratory Rate 16 16 16 Blood Pressure 154/75 H 150/72 H 148/78 H Pulse Oximetry 97 98 97 Oxygen Delivery Oxygen Flow Rate 08/03/23 14:59 08/03/23 16:46 08/03/23 18:59 Temperature 36.4 C 36.9 C Pulse Rate 88 101 H Respiratory Rate 16 16 Blood Pressure 152/79 H 147/84 H Pulse Oximetry 99 96 98 Oxygen Delivery Room Air Oxygen Flow Rate 08/03/23 20:28 08/03/23 20:00 08/04/23 00:10 Temperature 36.8 C 36.7 C Pulse Rate 99 99 103 H Respiratory Rate 17 17 19 Blood Pressure 152/82 H 151/84 H Pulse Oximetry 98 98 97 Oxygen Delivery Room Air Oxygen Flow Rate 08/04/23 04:27 Temperature 36.5 C Pulse Rate 96 Respiratory Rate 18 Blood Pressure 145/73 H Pulse Oximetry 97 Oxygen Delivery Oxygen Flow Rate Intake/Output Intake/Output: Intake & Output 08/01/23 08/02/23 08/03/23 08/04/23 23:59 23:59 23:59 23:59 Intake Total 1840 400 Output Total 500 600 Balance 1340 -200 Meds/Results Medications: Active Medications Generic Name Dose Route Start Last Admin Trade Name Freq PRN Reason Stop Dose Admin Acetaminophen 650 mg 08/04/23 06:40 Acetaminophen 325 Mg Tablet PO Q4H XI Albuterol 1 puff 08/03/23 13:14 Albuterol Sulfate (*Sp) Aerosol 1 Puff INHALATION QID PRN Wheezing Apixaban 2.5 mg 08/04/23 09:00 Apixaban 2.5 Mg Tablet PO 08/15/23 21:01 Q12HR [facility] Atorvastatin Calcium 20 mg 08/04/23 09:00 Atorvastatin 20 Mg Tablet PO DAILY [facility] Cefdinir 300 mg 08/04/23 09:00 Cefdinir 300 Mg Capsule PO Q12HR [facility] Dexamethasone Sodium Phosphate 8 mg 08/04/23 08:49 Dexamethasone Sod Phos Inj 10 Mg/Ml 1 Ml Vial IV PUSH 08/04/23 08:50 O
[2023-08-04 06:49] LABS: Alanine Aminotransferase 34 U/L (6-50); Alkaline Phosphatase 48 U/L (38-126); Anion Gap 10 mmol/L (8-16); Aspartate Amino Transferase 32 U/L (17-59); Bilirubin,Total 0.8 mg/dL (0.2-1.3); Blood Urea Nitrogen 29 mg/dL (9-20); Calcium 8.8 mg/dL (8.4-10.2); Carbon Dioxide 22 mmol/L (22-30); Chloride 106 mmol/L (98-107); Estimated CRCL calculation 62 ml/min; Estimated Glomerular Filt Rate 55; Glucose 112 mg/dL (65-110); Potassium 3.9 mmol/L (3.4-5.0); Sodium 138 mmol/L (137-145)
--- NOTE | 2023-08-04 07:31 | PM.PNORT ---
Progress Note: A&P Assessment and Plan (1) History of total left knee replacement: Code(s): Z96.652 - Presence of left artificial knee joint Status: Acute Plan Patient to be discharged home today after therapy we went over the instructions as discussed above. The patient voiced understanding and agrees with above plan. See discharge orders and discharge summary. The patient will call the office immediately for any problems difficulties or questions. Follow-up 2 weeks postop for wound recheck with Dr. Patterson Subjective Subjective Date/Time Seen: 08/04/23 07:31 Interval history: Patient doing well postop day 1 status post left total knee arthroplasty. Had some pain overnight but well controlled this morning. He is alert oriented x3 this morning doing well. No other complaints. Today at bedside we talked about the discharge plan today he can take his oxycodone every 4 hours along with Tylenol as needed for severe pain. He will not be taking Celebrex because of some chronic kidney disease. Talked about elevating his legs much as possible on his back above his heart get up every hour to ambulate weight-bearing as tolerated with a walker. He will start outpatient physical therapy and do these exercises 5 times a day as well. Follow-up 2 weeks postop wound recheck remove the dressing in 1 week otherwise leave it in place he may shower with and place. We talked about not sitting in the chair letting his leg hang down except to get up to eat meals or go to the bathroom. The patient voiced understanding and agreed with the above plan. Review of Systems Review of Systems: Ten point review of systems negative Exam Narrative: Vital signs stable afebrile neurovascularly intact wound clean and dry calves benign. Alert oriented x3. Normal mood and affect. Eating well able to get up and ambulate with a walker pain well controlled this morning. Objective Data Vital Signs Vital Signs: Vital Signs - 24 hr 08/03/23 11:46 08/03/23 12:00 08/03/23 12:15 Temperature 36.1 C L Pulse Rate 87 87 87 Respiratory Rate 14 13 15 Blood Pressure 96/49 L 110/54 L 113/60 Pulse Oximetry 99 100 97 Oxygen Delivery Simple Face Mask Simple Face Mask Room Air Oxygen Flow Rate 10 10 08/03/23 12:30 08/03/23 12:45 08/03/23 13:00 Temperature Pulse Rate 89 90 93 Respiratory Rate 12 12 20 Blood Pressure 112/45 L 117/63 142/77 H Pulse Oximetry 97 94 96 Oxygen Delivery Room Air Room Air Room Air Oxygen Flow Rate 08/03/23 14:00 08/03/23 14:50 08/03/23 13:14 Temperature 36.4 C Pulse Rate 92 Respiratory Rate 16 Blood Pressure 154/75 H Pulse Oximetry 97 Oxygen Delivery Room Air Room Air Oxygen Flow Rate 08/03/23 13:29 08/03/23 13:59 08/03/23 14:59 Temperature 36.4 C 36.4 C 36.4 C Pulse Rate 90 89 88 Respiratory Rate 16 16 16 Blood Pressure 150/72 H 148/78 H 152/79 H Pulse Oximetry 98 97 99 Oxygen Delivery Oxygen Flow Rate 08/03/23 16:46 08/03/23 18:59 08/03/23 20:28 Temperature 36.9 C 36.8 C Pulse Rate 101 H 99 Respiratory Rate 16 17 Blood Pressure 147/84 H 152/82 H Pulse Oximetry 96 98 98 Oxygen Delivery Room Air Oxygen Flow Rate 08/03/23 20:00 08/04/23 00:10 08/04/23 04:27 Temperature 36.7 C 36.5 C Pulse Rate 99 103 H 96 Respiratory Rate 17 19 18 Blood Pressure 151/84 H 145/73 H Pulse Oximetry 98 97 97 Oxygen Delivery Room Air Oxygen Flow Rate Intake/Output Intake/Output: Intake & Output 08/01/23 08/02/23 08/03/23 08/04/23 23:59 23:59 23:59 23:59 Intake Total 1840 400 Output Total 500 600 Balance 1340 -200 Meds/Results Medications: Active Medications Generic Name Dose Route Start Last Admin Trade Name Giselle PRN Reason Stop Dose Admin Acetaminophen 650 mg 08/04/23 06:00 08/04/23 07:00 Acetaminophen 325 Mg Tablet PO Not Given Q4H XI Albuterol 1 puff 08/03/23 13:14 Albuterol Sulfate (*Sp) Aerosol 1 Puff
[2023-08-04] MEDS: MORPHINE SULFATE (*CRX) 2 MG/ML INJ IV PUSH (08:23)
--- NOTE | 2023-08-04 08:47 | PM.DS ---
DS: Admitting Diagnosis Discharge Date August 04, 2023 Admitting Diagnosis advanced primary osteoarthritis left knee joint discharge diagnosis same status post left total knee arthroplasty DS: Summary Hospital Course Hospital Course: the patient was seen postop day 1 on 08/04/2023. He had some issues with postoperative pain control overnight medications were adjusted he was doing much better the following day. The next morning vital signs were stable he was afebrile neurovascularly was intact wound was clean and dry calves are benign he was alert oriented x3. Normal mood and affect. Tolerating p.o. well. He was up ambulating independently with a walker. No other complaints. The patient was to be discharged on Eliquis 2.5 mg b.i.d. x2 weeks then resume his baby aspirin b.i.d. for 4 weeks then resume regular aspirin regimen which was 81 mg daily. He was also discharged with oxycodone 5 mg every 4 hours a scheduled basis docusate Senokot 2 tabs b.i.d. MiraLax Pack its daily to prevent constipation. Tylenol 650 mg every 4 hours with the oxycodone. Omnicef 300 mg b.i.d. times 10 days the patient was to elevate his leg MCKAY is back as much as possible with his leg elevated except to get up every hour to move around weight-bearing as tolerated with a walker. He was to do his PT exercises at least 5 times a day leave the dressing in place change in 1 week he can shower with the dressing in place call the office immediately if it looks like there is any issues with the wound or drainage or signs of infection. He is going to have outpatient physical therapy for total knee protocol full weight-bearing with a walker. He is instructed not to sit in the chair with his leg hanging down except for meals or to go to the restroom otherwise he is to be elevating his leg to prevent DVT. If it appears that his leg is swelling he is instructed to call the office and had to the hospital immediately for venous duplex scan. The patient was also advised not to put any ice on the incision. The patient was ready for discharge to home after therapy postop day 1. Time Spent with Patient Time attestation: Total time spent providing and/or coordinating discharge services: Exam Narrative: vital signs stable afebrile neurovascular intact wound clean and dry calves were benign alert oriented x3. Normal mood and affect. Tolerating p.o. well. DS: Data Data Completed and Pending Labs on day of discharge: Labs from last 24 hours 08/04/23 06:06 WBC 12.1 H RBC 4.25 L Hgb 12.8 L D Hct 39.7 L MCV 93.4 MCH 30.1 MCHC 32.2 RDW 13.8 Plt Count 164 MPV 10.8 H Immature Gran % (Auto) 0.5 Neut % (Auto) 71.4 Lymph % (Auto) 18.0 L Hickman % (Auto) 9.5 H Eos % (Auto) 0.1 Baso % (Auto) 0.5 Lymph # (Auto) 2.18 Hickman # (Auto) 1.2 H Eos # (Auto) 0.0 Baso # (Auto) 0.1 Abs Immat Gran (auto) 0.06 H Absolute Neuts (auto) 8.7 H Absolute Nucleated RBC 0.0 Nucleated RBC % 0.0 Sodium 138 Potassium 3.9 Chloride 106 Carbon Dioxide 22 Anion Gap 10 BUN 29 H Creatinine 1.30 Estim Creat Clear Calc 62 Estimated GFR 55 L Glucose 112 H Calcium 8.8 Magnesium 2.0 Total Bilirubin 0.8 Direct Bilirubin 0.0 AST 32 ALT 34 Alkaline Phosphatase 48 Total Protein 7.0 Albumin 4.0 Procedures/Treatments: left total knee arthroplasty Discharge Plan Discharge Patient Disposition: Home, Self-Care Discharge Instructions: IVONNE TAYLOR M.D [facility], [address] [place] [id number] POST-OPERATIVE DISCHARGE INSTRUCTIONS TOTAL KNEE ARTHROPLASTY 1. When resting, do not rest in the chair.When resting, lie on your back, with back flat on the couch or bed, with leg elevated above heart to minimize swelling. You may put a pillow under your head. . Significant swelling could indicate a blood clot and if this occurs call the office (or go to the ER) to have a venous ultrasou
[2023-08-04] MEDS: CEFDINIR 300 MG CAPSULE PO (09:08)
[2023-08-04] MEDS: APIXABAN 2.5 MG TABLET PO (09:08)
[2023-08-04] MEDS: SENNA/DOCUSATE SODIUM TABLET 2 TAB PO (09:08)
[2023-08-04] MEDS: hydroCHLOROthiazide 25 MG TABLET PO (09:08)
[2023-08-04] MEDS: ATORVASTATIN 20 MG TABLET PO (09:08)
[2023-08-04] MEDS: FAMOTIDINE 20 MG TABLET PO (09:08)
[2023-08-04] MEDS: FINASTERIDE 5 MG TABLET PO (09:08)
[2023-08-04] MEDS: polyethylene glycoL 3350 17 GM POWD.PACK PO (09:09)
[2023-08-04 09:16] VITALS: BP 157/70; PULSE 90; RESP 14; O2SAT 100
--- NOTE | 2023-08-04 09:18 | PCOTNOTE ---
Patient refused treatment this session. Patient reports not interested in completing OT patient stated he has all the adaptive equipment he needs and is fully aware how to use it.
[2023-08-04] MEDS: oxyCODONE HCL (*CRX) 5 MG TAB IR 10 MG PO (10:22)
[2023-08-04] MEDS: ACETAMINOPHEN 325 MG TABLET 650 MG PO (10:22)
--- NOTE | 2023-08-04 11:48 | PM.IMPN ---
Progress Note: A&P Assessment and Plan (1) Arthritis of left knee: Code(s): M17.12 - Unilateral primary osteoarthritis, left knee Status: Acute Assessment and Plan: Postoperative day 0 status post left total knee arthroplasty. Wound care, pain control, and DVT prophylaxis deferred to Dr. Patterson. Agree with PT/OT. (2) Hypertension: Code(s): I10 - Essential (primary) hypertension Status: Acute Assessment and Plan: Blood pressures were reviewed and they have been running a bit high this evening, likely due to pain. Continue antihypertensives and monitor blood pressures closely. (3) Chronic kidney disease, stage 3b: Code(s): N18.32 - Chronic kidney disease, stage 3b Status: Acute Assessment and Plan: stable (4) Benign prostatic hyperplasia: Code(s): N40.0 - Benign prostatic hyperplasia without lower urinary tract symptoms Status: Acute Assessment and Plan: Continue finasteride; p.r.n. bladder scan. (5) Hyperlipidemia: Code(s): E78.5 - Hyperlipidemia, unspecified Status: Acute Assessment and Plan: Continue atorvastatin check LFTs in a.m. Plan Thank you for allowing us to participate in this patient's care. Please do not hesitate to contact us with any questions. Subjective Date/time seen: 08/04/23 11:48 Interval history: patient does have some pain in his left knee although he is working well with therapy managing well. He has no complaints at this time. Did well postoperatively denies any nausea, chest pain, shortness a breath. Is tolerating diet well. Okay to discharge per hospitalist team. Exam Narrative: GENERAL: Comfortable, no acute distress HENMT: moist mucous membranes EYES: EOM intact b/l NECK: no lymphadenopathy RESPIRATORY: clear to auscultation CARDIO: RRR GI: soft, nontender, bowel sounds present SKIN: no rashes EXTREMITIES: Left knee Tegaderm dry and intact Objective Data Vital Signs Vital Signs: Vital Signs - 24 hr 08/03/23 12:00 08/03/23 12:15 08/03/23 12:30 Temperature Pulse Rate 87 87 89 Respiratory Rate 13 15 12 Blood Pressure 110/54 L 113/60 112/45 L Pulse Oximetry 100 97 97 Oxygen Delivery Simple Face Mask Room Air Room Air Oxygen Flow Rate 10 08/03/23 12:45 08/03/23 13:00 08/03/23 14:00 Temperature Pulse Rate 90 93 Respiratory Rate 12 20 Blood Pressure 117/63 142/77 H Pulse Oximetry 94 96 Oxygen Delivery Room Air Room Air Room Air Oxygen Flow Rate 08/03/23 14:50 08/03/23 13:14 08/03/23 13:29 Temperature 97.6 F 97.6 F Pulse Rate 92 90 Respiratory Rate 16 16 Blood Pressure 154/75 H 150/72 H Pulse Oximetry 97 98 Oxygen Delivery Room Air Oxygen Flow Rate 08/03/23 13:59 08/03/23 14:59 08/03/23 16:46 Temperature 97.6 F 97.6 F Pulse Rate 89 88 Respiratory Rate 16 16 Blood Pressure 148/78 H 152/79 H Pulse Oximetry 97 99 96 Oxygen Delivery Room Air Oxygen Flow Rate 08/03/23 18:59 08/03/23 20:28 08/03/23 20:00 Temperature 98.4 F 98.2 F Pulse Rate 101 H 99 99 Respiratory Rate 16 17 17 Blood Pressure 147/84 H 152/82 H Pulse Oximetry 98 98 98 Oxygen Delivery Room Air Oxygen Flow Rate 08/04/23 00:10 08/04/23 04:27 08/04/23 09:16 Temperature 98.1 F 97.7 F Pulse Rate 103 H 96 90 Respiratory Rate 19 18 14 Blood Pressure 151/84 H 145/73 H 157/70 H Pulse Oximetry 97 97 100 Oxygen Delivery Oxygen Flow Rate 08/04/23 09:10 Temperature Pulse Rate Respiratory Rate Blood Pressure Pulse Oximetry Oxygen Delivery Room Air Oxygen Flow Rate Intake/Output Intake/Output: Intake & Output 08/01/23 08/02/23 08/03/23 08/04/23 23:59 23:59 23:59 23:59 Intake Total 1840 520 Output Total 500 600 Balance 1340 -80 Meds/Results Medications: Active Medications Generic Name Dose Route Start Last Admin Trade Name Freq PRN Reason Stop Dose Admin Acetami
== END 2023-08-04 12:00 | disposition home or self-care (01) ==
LOC: ANHSURGERY 06:01 → ANH2MED 13:16
PROVIDERS: Physician Assistant; Physician Assistant Surgical; PCP Internal Medicine; Visit Provider Orthopaedic Surgery
PROC: (CPT 27447; principal; 2023-08-03 07:30)
DX: M17.12 Unilateral primary osteoarthritis, left knee (principal); I12.9 Hypertensive chronic kidney disease with stage 1 through stage 4 chronic kidney disease, or unspecified chronic kidney disease; N18.32 Chronic kidney disease, stage 3b; N40.0 Benign prostatic hyperplasia without lower urinary tract symptoms; E78.5 Hyperlipidemia, unspecified; J45.909 Unspecified asthma, uncomplicated; E66.9 Obesity, unspecified; Z68.33 Body mass index [BMI] 33.0-33.9, adult; Z87.891 Personal history of nicotine dependence; Z79.82 Long term (current) use of aspirin; Z79.51 Long term (current) use of inhaled steroids; Z79.890 Hormone replacement therapy
CPT/HCPCS: 27447; 36415; 73560; 80048; 80076; 80307; 83036; 83735; 85025; 85610; 85730; 86850; 86900; 86901; 87081; 93005; 97110; 97116; 97161; 97165; 97530; 97535; A9270; C1713; C1776; J0171; J0690; J1100; J1170; J2250; J2270; J2405; J2704; J2795; J3010; J3370; J7120

== ENCOUNTER 2024-09-05 13:18 | Outpatient (CLI) | payer MEDICARE, SELFPAY ==
--- NOTE | ~2024-09-05 | US_ITS ---
EXAM: RENAL ULTRASOUND HISTORY: Serum creatine outside reference range COMPARISON: 01/30/2022 FINDINGS: RIGHT KIDNEY: 12.4 x 6.4 x 5.8 cm. No hydronephrosis or bulky renal calculi. LEFT KIDNEY: 17 x 9 x 8 cm No hydronephrosis or renal calculi. The parenchyma of the left kidney is increased in echogenicity with significant cortical thinning. Multiple rounded anechoic avascular foci detected. The largest within the interpolar region of the left kidney measures 8 cm in greatest dimension. BLADDER: Minimally distended, and otherwise unremarkable. Despite prolonged interrogation, neither ureteral jet was visualized IMPRESSION: No hydronephrosis or renal calculi. Findings suggesting medical renal disease. Innumerable simple cysts within the globally enlarged left kidney, similar in morphology and size whe n compared to 01/30/2022. Despite prolonged interrogation, neither ureteral jet was visualized Reviewed, dictated and finalized at location A. [employer] IMPRESSION: No hydronephrosis or renal calculi. Findings suggesting medical renal disease. Innumerable simple cysts within the globally enlarged left kidney, similar in m orphology and size when compared to 01/30/2022. Despite prolonged interrogation, neither ureteral jet was visualized
== END 2024-09-05 13:19 | disposition home or self-care (01) ==
LOC: MICIMG 13:20
PROVIDERS: PCP Internal Medicine; Visit Provider Internal Medicine
DX: R79.89 Other specified abnormal findings of blood chemistry (principal); N28.1 Cyst of kidney, acquired
CPT/HCPCS: 76775